=== PATIENT | female | born 1965 | race African-American/Black ===

== ENCOUNTER 2021-05-12 09:39 | Outpatient (CLI) | payer BC, SELFPAY ==
--- NOTE | ~2021-05-12 | US_ITS ---
EXAMINATION: US biopsy lymph node DATE: 05/12/2021 10:35 INDICATION: Right axillary lymphadenopathy. TECHNIQUE: The procedure including the risks, benefits, and alternatives was discussed with the patie nt. Risks discussed included bleeding and infection. The patient understood the risks and agreed to p roceed. The skin overlying the right axilla was prepped and draped in usual sterile fashion. Anesthe tic was administered with 1% lidocaine subcutaneously. An 18 gauge core biopsy needle was then used to obtain 7 core biopsy specimens under continuous sonographic guidance. The entry site was cleaned a nd dressed. There were no immediate complications. FINDINGS: Ultrasound images demonstrate the needle in a 2.5 x 1.8 cm right axillary lymph node. IMPRESSION: 1. Ultrasound-guided core needle biopsy of an enlarged right axillary lymph node. Reviewed, dictated and finalized at location A. [employer] IMPRESSION: 1. Ultrasound-guided core needle biopsy of an enlarged right axillary lymph nod e.
== END 2021-05-12 09:40 | disposition home or self-care (01) ==
LOC: ANHIMG 09:44
PROVIDERS: Visit Provider Obstetrics & Gynecology
DX: N63.31 Unspecified lump in axillary tail of the right breast (principal)
CPT/HCPCS: 38505; 76942; 88305